=== PATIENT | female | born 1950 | race Caucasian/White ===

== ENCOUNTER → 2018-07-30 | Outpatient (CLI) | payer MEDICARE, MEDICAID ==
--- NOTE | 2018-07-30 12:25 | RAD ---
Frontal view pelvis. Two-view left hip. Indication: PAIN IN LEFT HIP Comparison: None. Impression: No gross pelvic or left hip fracture. Evaluation for fracture is limited given the degree of osteopenia. If high clinical concern for acute fracture, correlation with MRI recommended given its greater sensitivity in the osteopenic patient. If the patient cannot tolerate MRI imaging or more urgent imaging is required, CT could be performed, however it is less sensitive in the osteopenic patient when compared to MRI. Mild to moderate bilateral hip osteoarthritis with joint space narrowing and tiny osteophytes. Small left hip cam deformity. Scattered vascular calcifications with a right iliac stent. Osteopenia. If this is a new finding, DEXA scan recommended as well as evaluation for possible osteoporosis treatment. Electronically signed by: Tai Meadows MD 07/30/2018 12:22 PM [facility]
== END ==
LOC: RAD 09:33
PROVIDERS: ATTEND Orthopaedic Surgery
DX: M25.552 Pain in left hip (principal); M16.0 Bilateral primary osteoarthritis of hip; M85.88 Other specified disorders of bone density and structure, other site; M21.852 Other specified acquired deformities of left thigh

== ENCOUNTER 2018-12-10 05:35 | Day surgery (SDC) | payer MEDICARE, MEDICAID ==
--- NOTE | 2018-12-07 13:40 | HP ---
CHIEF COMPLAINT: Right hand numbness. HISTORY OF PRESENT ILLNESS: Ms. Johnson is a 68-year-old female with a history of pain and numbness in the right hand. She has had EMG by Dr. Bagley which does confirm, in addition to other findings, the presence of carpal tunnel syndrome. Ms. Johnson and I have gone over options and at this point, she is requesting operative intervention. After discussing the risks, benefits and alternatives to that, she has given informed consent. PAST SURGICAL HISTORY: 1. Multiple previous arm surgeries. 2. C-sections x2. 3. Bilateral lower extremity stent placement. 4. Hysterectomy. 5. Appendectomy. MEDICATIONS: 1. Buspirone. 2. Chantix. 3. Plavix. 4. Fluoxetine. 5. Fluticasone. 6. Lyrica. 7. Metaxalone. 8. Methotrexate. 9. Naprosyn. 10. Nitroglycerin. 11. Plaquenil. 12. Pramipexole. 13. Propranolol. 14. Symbicort. ALLERGIES: BACTRIM, SULFA. CODE STATUS: DNR. IMMUNIZATIONS: Up to date. FAMILY HISTORY: None pertinent to today's complaint. SOCIAL HISTORY: The patient does not drink or use any illicit drugs. She does smoke. REVIEW OF SYSTEMS: Negative except as indicated in the History of Present Illness. PHYSICAL EXAMINATION: VITAL SIGNS: Blood pressure 140/104. Pulse 75. Height 5'2". Weight 102 pounds. MENTAL STATUS: The patient is awake, alert, and is able to give a good history and participate in the physical. The patient is oriented to person, place and time. SKIN: Normal tone and turgor. HEENT: Normocephalic, atraumatic. Pupils equal, round and reactive. Mucosal membranes are moist. NECK: Normal range of motion. No thyromegaly, no lymphadenopathy. CHEST: Normal respiratory excursion. CARDIAC: Regular rate and rhythm. No murmurs, rubs or gallops. MUSCULOSKELETAL: She has obvious thenar and hypothenar atrophy. She has intact sensation right now in the distribution of the median nerve although she has positive carpal compression test. She has intact sensation proximal to the elbow. She has positive Tinel's at the elbow. 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 ASSESSMENT: 1. Carpal tunnel syndrome. 2. Cubital tunnel syndrome. 3. Cervical radiculopathy. PLAN: We have gone over the findings and she has seen Dr. Bagley and continues to see him. At this point, we are going to start with carpal tunnel release. She did understand that this may not give her complete relief and, therefore, we may have to pursue further surgical intervention. That would be inclusive of ulnar nerve transposition. At this point, we have discussed the risks, benefits and alternatives to that and informed consent has been obtained. #[id number] [facility]
[2018-12-10] MEDS ORDERED: LACTATED RINGERS 1,000 ML ONE (05:40)
[2018-12-10] MEDS ORDERED: ceFAZolin SODIUM 1 GM VIAL ONE ×2 (05:40→06:34)
[2018-12-10] MEDS ORDERED: SODIUM CHL 0.9% 100ML MINI-BAG 100 ML IVPB ONE (05:40)
[2018-12-10] MEDS ORDERED: VANCOMYCIN HCL INJ 1,000 MG VIAL IVPB ONE (06:34)
[2018-12-10] MEDS ORDERED: LIDOCAINE 1% 50 ML VIAL INJ ONE (06:34)
[2018-12-10] MEDS ORDERED: BUPIVACAINE 0.25% INJ 30 ML VIAL INJ ONE (06:34)
[2018-12-10] MEDS ORDERED: fentaNYL CITRATE INJ 50 MCG/ML AMP ONE (06:49)
[2018-12-10] MEDS ORDERED: MIDAZOLAM INJ 2 MG/2 ML VIAL ONE (06:49)
[2018-12-10] MEDS ORDERED: PROPOFOL 200 MG/20 ML VIAL IV ONE (07:00)
[2018-12-10] MEDS ORDERED: LIDOCAINE 1% 10 ML VIAL INJ ONE (07:00)
--- NOTE | 2018-12-10 08:03 | OP ---
DATE OF PROCEDURE: 12/10/18 PREOPERATIVE DIAGNOSIS: 1. Carpal tunnel syndrome, right. POSTOPERATIVE DIAGNOSIS: 1. Carpal tunnel syndrome, right. PROCEDURE: 1. Right carpal tunnel release. SURGEON: Tomy Nunes MD. GENERAL OPERATIONS AGENT: Fred Wilde CST, SA-C. ANESTHESIA: Local with sedation. COMPLICATIONS: None. FINDINGS: Thickening of the transverse carpal ligament and narrowing of the median nerve across the carpal tunnel. INDICATION: Ms. Johnson has a long history of pain and numbness. She has had multiple issues including cervical radiculopathy, ulnar nerve entrapment and carpal tunnel syndrome. Because of her issues, we talked about options and she elected to begin with carpal tunnel release on the affected side. After discussing the risks, benefits and alternatives to that, the patient has given informed consent for carpal tunnel release. PROCEDURE: The patient was brought to the Operating Room and placed in the supine position. Sedation was administered and local anesthetic was injected into the operative area under sterile conditions. After the injection of anesthetic, the arm was sterilely prepped and draped. A longitudinal incision was made directly overlying the transverse carpal ligament and blunt dissection was carried down to the ligament. The transverse carpal ligament was sharply transected along its length and a Vidal elevator was used to ensure complete release of the ligament. Once release had been confirmed, the wound was thoroughly irrigated and the wound was closed with Nylon suture. A sterile dressing was placed and the patient was taken to the Day Surgery Unit. POSTOPERATIVE PLAN: The patient has been encouraged to do range of motion of the digits and will followup with us tomorrow. #[id number] [facility]
[2018-12-10] MEDS ORDERED: diphenhydrAMINE HCL 25 MG CAP ONE (08:04)
[2018-12-10 08:57] VITALS: BP 107/79; TEMP 97.6; O2SAT 93
== END 2018-12-10 08:25 | disposition home or self-care (01) ==
LOC: AMB 05:35
PROVIDERS: ATTEND Orthopaedic Surgery
DX: G56.01 Carpal tunnel syndrome, right upper limb (principal); Z88.2 Allergy status to sulfonamides; Z88.1 Allergy status to other antibiotic agents; Z90.710 Acquired absence of both cervix and uterus; Z79.02 Long term (current) use of antithrombotics/antiplatelets; Z79.899 Other long term (current) drug therapy
CPT/HCPCS: 01810; 64721; 80307; 87070; J0690; J2250; J3010; J3370; J3490; J7050; J7120; Q0163

== ENCOUNTER → 2019-05-12 | Outpatient (CLI) | payer MEDICARE, MEDICAID ==
--- NOTE | 2019-05-13 08:47 | RAD ---
EXAM DESCRIPTION: Hip,Left 2 Views CLINICAL HISTORY: 68 years Female, Pain of left hip joint COMPARISON: Radiographs dated 07/30/2018. FINDINGS: The visualized bones are poorly mineralized.No acute fracture or dislocation. Moderate degenerative changes are noted. The soft tissues appear grossly unremarkable. IMPRESSION: Moderate left hip osteoarthritis. Electronically signed by: Beronica Patel MD 05/13/2019 8:45 AM [facility]
== END ==
LOC: RAD 15:44
PROVIDERS: ATTEND Emergency Medicine
DX: M16.12 Unilateral primary osteoarthritis, left hip (principal)

== ENCOUNTER → 2019-05-13 | Outpatient (CLI) | payer MEDICARE, MEDICAID ==
--- NOTE | 2019-05-14 13:21 | CT ---
Procedure: CT LUNG SCREENING Exam Date: 05/13/2019 Ordering Provider: KIERA ABRAHAM Clinical Indication: Nicotine dependence . Current cigarette smoker. 75 pack years. This patient meets eligibility criteria for low-dose CT lung cancer screening. Comparison: Chest x-ray May 2016 Technique: Using a multislice scanner, sequential helical axial imaging was obtained in the thorax, 2.5 mm thickness, 2.5 mm separation, from the level of the thoracic inlet through the lung bases without IV contrast. A low dose protocol was utilized for BMI less than 30: BMI: 19. CTDI: 1.76 mGy. 120. kVp. 45 mA. DLP 65.94 mGy-centimeters. 2D sagittal and coronal reconstructed images, 6.0 mm thickness, were obtained. This exam was performed according to our departmental dose optimization program which includes use of automated exposure control, adjustment of the mA and/or kV according to patient size and/or use of iterative reconstruction technique. Nodule measurements under 10 mm are given as mean value of 3 axes diameters. FINDINGS: Lungs and large airways: Pleural parenchymal scarring in the bilateral lower lobes, left more than right. Bilateral numerous pulmonary blebs in the parenchyma in a centrilobular distribution more prevalent in the upper lung perez. Elongated subpleural solid nodule 3.5 mm versus focal pleural thickening lateral right apex on axial image 2/18. 3 mm groundglass versus solid subpleural nodule lateral lingula on image 2/56-57. 3.5 mm subpleural groundglass nodule slightly more superior subsegmental marginal thickening inferior lingula. On image 2/52, lateral lingula. Thickening of the inferior left major fissure. Pleura and space: Negative. Mediastinum and jayden: evaluation limited by low dose technique and lack of IV contrast. Normal sized lymph nodes with no dominant soft tissue mass. Tracheal and bronchial wall calcifications. Heart and great vessels: Left main and LAD coronary calcifications. Atherosclerotic calcifications proximal brachiocephalic vessels and aortic arch. Chest wall, lower neck, axillae: Evaluation also limited by same factors as described above. Bilateral axillary lymph nodes. Upper abdomen: Evaluation limited by low-dose technique. Atherosclerotic calcification. No free air or free fluid in the included peritoneal space. Also limited due to lack of intraperitoneal fatty tissue. Osseous structures: Evaluation limited by low dose MIP technique. Multiple levels of spondylosis. Dextroscoliosis. Anterior fusion construct cervical spine. Schmorl's nodes T10 and T11 superiorly. Prior ORIF left shoulder girdle. IMPRESSION: Small nodules bilaterally. One nodule on the right apex may represent pleural focal thickening.. No abnormal nodules or masses. No focal infiltrates. Emphysematous changes which are more prevalent in the upper lung perez.. [facility] Best Practice Recommendations: please see below for Lung RADS category and FOLLOW-UP.* *Lung RADS category CATEGORY 2- Nodules with a very low likelihood (less than 1%) of becoming a clinically active cancer due to size or lack of growth. Nodules: Perifissural nodule(s) < 10 mm. (526mm3). Solid or part solid nodule(s) less than 6mm (113.1 mm3), new solid nodule less than 4mm (33.5 mm3). Ground glass nodule(s) less than 30mm (97354.2 mm3) or unchanged or slow growing ground glass nodule 30mm or greater. Cat 3 or 4 nodule unchanged for 3 or more months. FOLLOW-UP: Continue annual screening with a Low Dose Chest CT in 12 months for re-evaluation. Electronically signed by: Fred Marcos MD 05/14/2019 1:20 PM [facility]
== END ==
LOC: CT 15:32
PROVIDERS: ATTEND Emergency Medicine
DX: Z87.891 Personal history of nicotine dependence (principal); R91.8 Other nonspecific abnormal finding of lung field; J43.9 Emphysema, unspecified

== ENCOUNTER → 2020-02-08 | Outpatient (CLI) | payer MEDICARE ==
--- NOTE | 2020-02-09 11:56 | RAD ---
EXAM DESCRIPTION: Hip,Left 2 Views CLINICAL HISTORY: OSTEOARTHRITIS COMPARISON: 12 May 2019 TECHNIQUE: 2 views left FINDINGS: Mild acetabular osteophyte formation is observed. No fracture is detected. Mild femoral head osteophyte formation is also observed. Degenerative changes are observed in all lower left sacroiliac joint. A stent is observed in the right iliac. No fracture of the pelvis or hip is detected. IMPRESSION: 1. Mild degenerative changes are observed in the hip unchanged from the previous exam. Electronically signed by: Jay Menon MD 02/09/2020 11:54 AM CDT
--- NOTE | 2020-02-10 19:21 | MAM ---
EXAM DESCRIPTION: 3D Screening BILATERAL : Digital Mammography. CLINICAL HISTORY: 69 years Female SCREENING . No complaints. Mother with ovarian cancer. Remote family history of breast cancer. Menarche age 16. Childbirth age 29. Menopause age unknown. HRT 5 or more years ago.. Lifetime risk of developing breast cancer (Tyrer-Cuzick model)(%): 5.9. COMPARISON: Baseline study at this facility.. No prior reports available. TECHNIQUE: Bilateral CC and MLO projection full-field images, digital tomosynthesis mammographic technique. Bilateral digital 2-D full-field MLO images. CAD available for 2-D images. FINDINGS: The breast parenchymal density pattern is: Scattered areas of fibroglandular density. No skin thickening or nipple retraction. Focal asymmetry versus mass density upper outer quadrant posterior third left breast near the pectoral muscle at approximately 2:30 clock position suggestion of small microcalcifications. Bilateral sporadic solitary microcalcifications. Also second area of focal asymmetry right breast retroareolar 3:30-4:00 sector. No focal, stellate mass or density, focal asymmetry , and no suspicious microcalcifications right breast. IMPRESSION: BI-RADS CATEGORY: 0 - INCOMPLETE- Need additional imaging evaluation. RECOMMENDATIONS: FOLLOW-UP: Recall for additional imaging: Directed ultrasound region of interest posterior upper outer quadrant and retroareolar left breast.. Written communication concerning the IMPRESSION and Follow-up, will be mailed to the patient and referring health care provider. Electronically signed by: Fred Marcos MD 02/10/2020 7:19 PM CDT
== END ==
LOC: MAMMO 13:30
PROVIDERS: ATTEND Emergency Medicine
DX: Z12.31 Encounter for screening mammogram for malignant neoplasm of breast (principal); M16.12 Unilateral primary osteoarthritis, left hip

== ENCOUNTER → 2020-02-10 | Outpatient (CLI) | payer MEDICARE ==
--- NOTE | 2020-02-10 18:16 | RAD ---
EXAM DESCRIPTION: Hip,Left 2 Views (accession [id number]), Pelvis (accession [id number]) CLINICAL HISTORY: 69 years Female, PN IN LEFT HIP COMPARISON: 05/12/2019 Findings: Three views/radiographs Location: Left hip/pelvis No acute fracture or dislocation. Moderate bilateral hip osteoarthritis. Vascular calcifications. Right pelvic vascular stent. IMPRESSION: Degenerative changes. No acute osseous abnormality in the left hip/pelvis. Electronically signed by: Samuel Collins MD 02/10/2020 6:15 PM CDT
--- NOTE | 2020-02-10 18:16 | RAD ---
EXAM DESCRIPTION: Hip,Left 2 Views (accession [id number]), Pelvis (accession [id number]) CLINICAL HISTORY: 69 years Female, PN IN LEFT HIP COMPARISON: 05/12/2019 Findings: Three views/radiographs Location: Left hip/pelvis No acute fracture or dislocation. Moderate bilateral hip osteoarthritis. Vascular calcifications. Right pelvic vascular stent. IMPRESSION: Degenerative changes. No acute osseous abnormality in the left hip/pelvis. Electronically signed by: Samuel Collins MD 02/10/2020 6:15 PM CDT
== END ==
LOC: RAD 10:44
PROVIDERS: ATTEND Orthopaedic Surgery
DX: M16.0 Bilateral primary osteoarthritis of hip (principal)

== ENCOUNTER → 2020-02-17 | Outpatient (CLI) | payer MEDICARE | END | disposition home or self-care (01) | LOC: US 09:08 | PROVIDERS: ATTEND Emergency Medicine | DX: M25.531 Pain in right wrist (principal) ==